=== PATIENT | male | born 1960 | race Caucasian/White ===

== ENCOUNTER 2017-10-13 10:31 | Day surgery (SDC) | payer BC ==
[~2017-10-13 10:31] MED LIST: Sodium Chloride 0.9% 1,000 ML IV SCH
[2017-10-13] MEDS ORDERED: Propofol 1,000 MG/100 ML SDV ONE (15:00)
--- NOTE | 2017-10-13 21:08 | OR ---
DATE OF OPERATION: 10/13/2017 PREOPERATIVE DIAGNOSIS: History of colon polyps. POSTOPERATIVE DIAGNOSIS: History of colon polyps. PROCEDURE: Colonoscopy with polypectomy. ESTIMATED BLOOD LOSS: Minimal. COMPLICATIONS: None. INDICATIONS FOR THE PROCEDURE: The patient is a 57-year-old male who has had previous colonoscopy and history of previous polyps. The patient denies any change in bowel habits. He is here today for a surveillance colonoscopy. DESCRIPTION OF PROCEDURE: Informed consent was obtained from the patient. The patient was taken to the operating room and placed on table in left lateral decubitus position. Monitored anesthesia care was applied. The patient did have rectal exam, which was unremarkable. No masses. Good rectal tone. The colonoscope was then advanced through the anus, directed toward the cecum. In the descending colon, a small pedunculated polyp was identified, removed by hot snare polypectomy. I then proceeded toward the cecum. Cecum was identified by appendiceal orifice and ileocecal valve. The colonoscope was then slowly withdrawn. An additional polyp was also found in the descending colon, which was removed with hot snare polypectomy. Retroflexion was performed in the rectum and was otherwise normal. Colonoscope was then removed. The patient tolerated the procedure well and was brought to the recovery room in good condition. FINDINGS: Descending colon polyps x2. RECOMMENDATIONS: We would recommend repeat colonoscopy in 5 years due to colon polyps. KEIKO /[id number]
== END 2017-10-13 17:30 | disposition home or self-care (01) ==
LOC: LB.SDS 10:31
PROVIDERS: ATTEND Surgery
DX: Z12.11 Encounter for screening for malignant neoplasm of colon (principal); D12.4 Benign neoplasm of descending colon; Z86.010 Personal history of colon polyps; Z79.899 Other long term (current) drug therapy
CPT/HCPCS: 45385; 88305; J7040; J3490